=== PATIENT | female | born 1980 | race African-American/Black ===

== ENCOUNTER 2017-03-25 16:58 | Emergency (ER) | payer BC, MEDICAID ==
[~2017-03-25] VITALS: Ht 180.3 cm; Wt 82.0 kg
[2017-03-25 16:59] VITALS: BP 151/88
== END 2017-03-25 20:27 | disposition left against medical advice (07) ==
LOC: ER 16:58
DX: Z00.8 Encounter for other general examination (principal); Z53.21 Procedure and treatment not carried out due to patient leaving prior to being seen by health care provider

== ENCOUNTER 2017-03-27 20:22 | Emergency (ER) | payer BC ==
[~2017-03-27] VITALS: Ht 177.8 cm; Wt 72.0 kg
[2017-03-27] MEDS ORDERED: IBUPROFEN 600MG TABLET PO ONE (22:30)
[2017-03-27 23:30] VITALS: BP 118/85
== END 2017-03-27 23:45 | disposition home or self-care (01) ==
LOC: ER 20:29
DX: K08.89 Other specified disorders of teeth and supporting structures (principal)
CPT/HCPCS: 99283

== ENCOUNTER 2018-05-04 16:09 | Emergency (ER) | payer BC ==
[~2018-05-04] VITALS: Ht 177.8 cm; Wt 109.0 kg
[2018-05-04 16:18] VITALS: BP 164/101
== END 2018-05-04 18:20 | disposition left against medical advice (07) ==
LOC: ER 16:09
DX: R51 Headache (principal); Z53.21 Procedure and treatment not carried out due to patient leaving prior to being seen by health care provider

== ENCOUNTER 2018-05-10 17:29 | Emergency (ER) | payer BC, OTHER ==
[~2018-05-10] VITALS: Ht 177.8 cm; Wt 130.0 kg
[2018-05-10 17:48] VITALS: BP 150/84
== END 2018-05-10 23:44 | disposition left against medical advice (07) ==
LOC: ER 17:32
DX: Z53.21 Procedure and treatment not carried out due to patient leaving prior to being seen by health care provider (principal)